=== PATIENT | female | born 1970 | race African-American/Black ===

== ENCOUNTER → 2016-06-14 | Outpatient (CLI) | payer OTHER ==
--- NOTE | 2016-06-14 14:33 | RAD ---
EXAM: Right shoulder, 3 views. HISTORY: Pain. COMPARISON: None. FINDINGS: Internal and external rotation and transscapular views of the right shoulder are obtained. There is no fracture, dislocation or subluxation. IMPRESSION: No acute osseous finding.
== END | disposition home or self-care (01) ==
LOC: RAD 13:53
PROVIDERS: ATTEND Internal Medicine
DX: M25.511 Pain in right shoulder (principal)
CPT/HCPCS: 73030

== ENCOUNTER 2016-06-30 21:45 | Emergency (ER) | payer OTHER ==
[~2016-06-30] VITALS: Ht 157.5 cm; Wt 65.8 kg
[2016-06-30 22:06] VITALS: BP 179/92
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
== END 2016-06-30 22:34 | disposition home or self-care (01) ==
LOC: ER 21:45
DX: M25.511 Pain in right shoulder (principal)
CPT/HCPCS: 99282